=== PATIENT | female | born 2000 | race Caucasian/White ===

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

== ENCOUNTER → 2019-02-12 14:58 | Outpatient (CLI) | payer BC, SELFPAY ==
[2016-07-13 00:38] VITALS: BMI 29.0
[2019-02-12 16:42] LABS: Progesterone Level 5.56 ng/mL (See Comment)
== END ==
PROVIDERS: Visit Provider Obstetrics & Gynecology
DX: E28.2 Polycystic ovarian syndrome (principal)
CPT/HCPCS: 36415; 84144

== ENCOUNTER → 2019-03-14 15:58 | Outpatient (CLI) | payer BC, SELFPAY ==
[2016-07-13 00:38] VITALS: BMI 29.0
[2019-03-14 17:45] LABS: Progesterone Level 13.24 ng/mL (See Comment)
== END ==
PROVIDERS: Referring Provider Obstetrics & Gynecology; Visit Provider Obstetrics & Gynecology
DX: E28.8 Other ovarian dysfunction (principal)
CPT/HCPCS: 36415; 84144

== ENCOUNTER → 2019-03-21 11:50 | Outpatient (CLI) | payer BC, SELFPAY ==
[2016-07-13 00:38] VITALS: BMI 29.0
[2019-03-21 12:43] LABS: Internal QC Validated? YES +Cl - CLEAR BKGD
[2019-03-21 13:06] LABS: Pregnancy, Serum, hCG Quali. POSITIVE Negative
[2019-03-21 13:17] LABS: hCG Titer Quant., Serum 6 mIU/mL (1-3)
== END ==
PROVIDERS: Visit Provider Obstetrics & Gynecology
DX: N92.1 Excessive and frequent menstruation with irregular cycle (principal)
CPT/HCPCS: 36415; 84702; 84703

== ENCOUNTER → 2019-03-23 11:05 | Outpatient (CLI) | payer BC, SELFPAY ==
[2016-07-13 00:38] VITALS: BMI 29.0
[2019-03-23 11:59] LABS: hCG Titer Quant., Serum 6 mIU/mL (1-3)
== END ==
PROVIDERS: Visit Provider Obstetrics & Gynecology
DX: Z32.01 Encounter for pregnancy test, result positive (principal)
CPT/HCPCS: 36415; 84702

== ENCOUNTER → 2019-03-26 11:37 | Outpatient (CLI) | payer BC, SELFPAY ==
[2016-07-13 00:38] VITALS: BMI 29.0
[2019-03-26 16:35] LABS: Progesterone Level 0.71 ng/mL (See Comment)
[2019-03-27 15:01] LABS: hCG Titer Quant., Serum 10 mIU/mL (1-3)
[2019-04-02 13:20] LABS: HCG BETA-SUBUNIT QUANT. 11 mIU/mL (.)
== END ==
PROVIDERS: Visit Provider Obstetrics & Gynecology
DX: N92.1 Excessive and frequent menstruation with irregular cycle (principal); O20.0 Threatened abortion; Z3A.00 Weeks of gestation of pregnancy not specified
CPT/HCPCS: 36415; 84144; 84702

== ENCOUNTER → 2019-04-16 14:37 | Outpatient (CLI) | payer BC, SELFPAY ==
[2019-04-16 16:18] LABS: Progesterone Level 19.76 ng/mL (See Comment)
== END ==
PROVIDERS: Visit Provider Obstetrics & Gynecology
DX: N97.0 Female infertility associated with anovulation (principal)
CPT/HCPCS: 36415; 84144

== ENCOUNTER → 2019-05-29 13:19 | Outpatient (CLI) | payer BC, SELFPAY ==
[2019-05-29 15:11] LABS: hCG Titer Quant., Serum < 1 mIU/mL (1-3)
== END ==
PROVIDERS: Visit Provider Obstetrics & Gynecology
DX: N91.2 Amenorrhea, unspecified (principal)
CPT/HCPCS: 36415; 84702

== ENCOUNTER → 2019-06-20 09:46 | Outpatient (CLI) | payer BC, SELFPAY ==
[2016-07-13 00:38] VITALS: BMI 29.0
[2019-06-20 13:50] LABS: Progesterone Level 18.66 ng/mL (See Comment)
== END ==
PROVIDERS: Visit Provider Obstetrics & Gynecology
DX: N97.0 Female infertility associated with anovulation (principal)
CPT/HCPCS: 36415; 84144

== ENCOUNTER → 2019-06-26 13:48 | Outpatient (CLI) | payer BC, SELFPAY ==
[2016-07-13 00:38] VITALS: BMI 29.0
[2019-06-26 16:24] LABS: hCG Titer Quant., Serum 154 mIU/mL (1-3)
[2019-06-26 16:29] LABS: Progesterone Level 17.35 ng/mL (See Comment)
== END ==
PROVIDERS: Referring Provider Obstetrics & Gynecology; Visit Provider Obstetrics & Gynecology
DX: N91.2 Amenorrhea, unspecified (principal)
CPT/HCPCS: 36415; 84144; 84702

== ENCOUNTER → 2019-06-28 11:03 | Outpatient (CLI) | payer BC, SELFPAY ==
[2016-07-13 00:38] VITALS: BMI 29.0
[2019-06-28 12:33] LABS: hCG Titer Quant., Serum 360 mIU/mL (1-3)
== END ==
PROVIDERS: Visit Provider Obstetrics & Gynecology
DX: O20.0 Threatened abortion (principal)
CPT/HCPCS: 36415; 84702

== ENCOUNTER → 2019-06-30 10:15 | Outpatient (CLI) | payer BC, SELFPAY ==
[2016-07-13 00:38] VITALS: BMI 29.0
[2019-06-30 11:32] LABS: hCG Titer Quant., Serum 604 mIU/mL (1-3)
== END ==
PROVIDERS: Referring Provider Obstetrics & Gynecology; Visit Provider Obstetrics & Gynecology
DX: O20.0 Threatened abortion (principal); Z3A.00 Weeks of gestation of pregnancy not specified
CPT/HCPCS: 36415; 84702

== ENCOUNTER → 2019-07-02 14:09 | Outpatient (CLI) | payer BC, SELFPAY ==
[2019-07-02 15:55] LABS: hCG Titer Quant., Serum 862 mIU/mL (1-3)
== END ==
PROVIDERS: Visit Provider Obstetrics & Gynecology
DX: O20.0 Threatened abortion (principal)
CPT/HCPCS: 36415; 84702

== ENCOUNTER → 2019-07-04 13:24 | Outpatient (CLI) | payer BC, SELFPAY ==
[2019-07-04 17:01] LABS: hCG Titer Quant., Serum 1134 mIU/mL (1-3)
== END ==
PROVIDERS: Visit Provider Obstetrics & Gynecology
DX: O20.0 Threatened abortion (principal)
CPT/HCPCS: 36415; 84702

== ENCOUNTER 2019-08-23 05:30 | Day surgery (SDC) | payer BC, SELFPAY ==
--- NOTE | 2019-08-22 08:26 | HP.PCM_ITS ---
- Problem List (1) Incomplete spontaneous Status: Acute History and Physical Date of Admission: 08/23/19 Surgical History and Physical Date: 08/22/2019 Name: ENOC HENDRIX Age: 19 Date of : 2000 Enoc Hendrix, a 19 year old female 1 0 1 0 1, presents for Suction dilation and curettage on August 23, 2019 at 11:00. -- Undergoing D&C for incomplete Ab following cytotec. Reports 1 episode of heavy bleeding and cramping following initial cytotec and again almost 1 week later had an increase in bleeding x 1 days, now only spotting intermitting. Occasional mild cramping. Denies abdominal pain, fever, chills. shm MEDICATIONS HISTORY: Current medications prescribed by our practice are: 1. metformin 500 mg tablet, 1 daily for 1 week then 2 daily the next week then 3 daily the next week then 4 daily the next week 2. misoprostol 200 mcg tablet, 4 tabs vaginally q24h prn 3. Vitamin D3 5,000 unit tablet, 1 tab PO daily ALLERGIES: Penicillins, Hives and/or rash Infections - Chicken pox and vaccine and mild active case Illnesses - none Accidents - no injuries of consequence Hospitalizations - Childbirth Review of Systems: GENERAL - Denies fever, or chills SKIN - Denies skin changes EYES - Denies visual changes EARS - Denies difficulty hearing NOSE - Denies nasal congestion or bleeding MOUTH - Denies sore throat or difficulty swallowing NECK - Denies pain or swelling RESPIRATORY - Denies shortness of breath or wheezing CARDIOVASCULAR - Denies palpitations or chest pain GASTROINTESTINAL - Denies nausea, vomiting, diarrhea, constipation GENITOURINARY - spotting MUSCULOSKELETAL - Denies joint or muscle pain NEUROLOGICAL - Denies localized numbness or weakness PSYCHIATRIC - Denies depression or anxiety ENDOCRINE - Denies heat or cold intolerance, weight loss or gain HEMATO-IMMUNOLOGIC - Denies excesive bleeding with cuts SOCIAL HISTORY: Alcohol Use - denies drinking Smoking - Never Diet - no special diet Lifestyle - Exercise - active Seat Belt Use - always Illicit Drug Use - denies use of street drugs Sexual Activity - ACTIVE ONE PARTNER Residence - lives with and daughter Place of - [place], [place] Spouse-Sig Other Name - Scotty Hendrix Spouse-Sig Other Occupation - [employer] Spouse-Sig Other Phone No - [phone] Children Name(s) - Tammy Control - FAMILY HISTORY: MENSTRUAL HISTORY: LMP Known?- DefiniteAmount/Duration - 4-5 DAYS, Regularity - Regular, Frequency - monthly days, LMP - 05/30/19, Age Onset Menarche - 10 PAST PREGNANCIES: Total Pregnancies - 3; Full Term Pregnancies - 1; Premature - 0; Abortions, Induced - 0; Abortions, Spontaneous - 1; Ectopics - 0; Multiple Births - 0; Living Children - 1 SURGICAL HISTORY: 1. none ; - PHYSICAL EXAM BP- 100/76 Sitting, Right arm, regular cuff Weight- 219.82098 lbs Height- 66.25 inch BMI:35.15 CONSTITUTIONAL - NAD, well nourished, and well developed HEENT - normocephalic, atraumatic, sclerae anicteric NEUROLOGICAL - normal gait, normal balance, normal motor PSYCHIATRIC - A and O to time, place, person, mood and affect External Genitial Vagina - non-tender without lesions Urethra/Urethral Meatus - non-tender Bladder - non-tender Vagina - vaginal armenta are pink and moist without loss of rugae and no evidence of atropy Cervix - without cervical motion tenderness and has normal size and features without evident lesions Uterus - multiparous size 6 cm & wt 75-125 g Adnexa - clear without massess or tenderness ULTRASOUND 08/16/19 UTERUS: 8.3 x 5.5 x 4.5 cm. ENDOMETRIAL ECHO: 1 cm and contains heterogenous material with blood flow. RIGHT OVARY: 4.2 x 1.9 x 2 cm. There is a 1.6 x 1.2 x 1 cm paratubal vs paraovarian cyst and appears polycystic. LEFT OVARY: 3.9 x 2 x 2 cm and appears polycystic. ASSESSMENT/PLAN: 1. Missed s/p incomplete Ab following cytotec for missed Ab as confirmed with ultrasound Persistent bleeding Advised suction dilation and curettage, reviewed r/b/i. Discussed misoprostol as alternative with review of risk for failure Sign consents on day of procedure NPO @ MN prior to procedure
[2019-08-23] VITALS (7 sets, daily range): BP systolic 105–121; BP diastolic 64–83; PULSE 71–93; RESP 16–18; TEMP 36.4–36.7; O2SAT 93–99; BMI 34.6
[2019-08-23] MEDS: Lactated Ringers 1,000 ML 100 ML IV (06:17)
[2019-08-23 06:46] LABS: Hematocrit 43.2 % (37-47); Mean Corp Hgb Conc 34.7 g/dL (32-36); Mean Corpuscular Hgb 29.5 pg (27.0-32.0); Mean Platelet Vol. 9.5 fl (6.2-12.0); Platelet Count 250 K/mm3 (150-450); RBC Distribution Width CV 12.4 % (11.6-14.6); RBC Distribution Width SD 37.9 fl (35.1-43.9); Red Blood Count 5.08 M/mm3 (4.2-5.4); White Blood Count 7.6 K/mm3 (4.4-11.0)
[2019-08-23 06:54] LABS: Prothrombin Time (Protime)PT. 13.1 SECONDS (11.7-14.9)
--- NOTE | 2019-08-23 07:15 | POC_PTH ---
PATIENT: ENOC HENDRIX LOC: [facility] – [place] U#:[id number] AGE/SX: 19/F ROOM: RE08/23/[address]: Dr. Cynthia Marion MD : 2000 BED: DIS: 08/23/2019 SPEC #: [id number] RECD: 08/23/19 09:32 STATUS: HALEIGH MANJU #: [id number] JASIEL: 08/23/19 07:[address]: Cynthia Mondragon DEPT: SURGICAL PATHOLOGY RECD BY: Shankar Choudhary ENTERED: 08/23/19 10:34 SP TYPE: PROD CONC OTHR DR: No Primary Care Phys Tissues: Product of conception, NOS Procedures: Surgery Specimen Level IV HEADER OPERATION: Dilation and curettage, suction PRE-OP DIAGNOSIS: Incomplete spontaneous TISSUE SUBMITTED: Products of conception MICROSCOPIC DIAGNOSIS Products of conception: Decidua and immature chorionic villi (products of conception). Proliferative endometrium. SJ:shane 08/24/19 COMMENT Case has been reviewed in consultation with Dr. Gates who concurs with the above diagnosis. IDC:AM MICROSCOPIC DESCRIPTION Slides are reviewed. GROSS DESCRIPTION Received in fixative is one container labeled with the patient's name and designated products of conception. The specimen consists of multiple fragments of pink hemorrhagic soft tissue that in aggregate measure 5 x 3 x 0.3 cm. tissue is not identified. The entire specimen is submitted in two cassettes. / SJ:shane 08/23/19 TC:5 CPT: 14682
[2019-08-23] MEDS: Lubricating Jelly 60 GM Tube 30 GM TOPICAL (07:25)
--- NOTE | 2019-08-23 07:45 | PCM.OPRPT ---
Problem List (1) Incomplete spontaneous Status: Acute Report of Operation Date of Procedure: 08/23/19 Pre-Operative Diagnosis: Incomplete spontaneous Post-Operative Diagnosis: Incomplete spontaneous Surgery/Procedure Performed:: Suction dilation and curettage tube cleaning operator: None Type of Anesthesia:: Local MAC Anesthesiologist: David Rodriguez Specimen's removed: products of conception Estimated Blood Loss (mL): 30 Fluids Replaced: 800 ml Description of Procedure: Indications: 19-year-old 3 para 1-0-1-1 presents for scheduled suction dilation and curettage for incomplete spontaneous . She had a 6week that was nonviable. She received misoprostol therapy however ultrasound showed retained products of conception. She was advised to proceed with the above procedure. Procedural risks, benefits, indications and alternatives were reviewed at length. Procedure: The patient was brought to the operating room and signed and was performed. She is placed in the dorsal supine position and induced under MAC. She is then repositioned into dorsolithotomy. Ultrasound was performed demonstrating evidence of customer relations assistant retained products of conception. The perineum was prepped and draped in sterile fashion. A bivalve speculum was placed into the vagina and the cervix grasped the anterior cervical lip using a single-tooth tenaculum. A paracervical block was placed for a total of 20 cc of 1% lidocaine. The cervix was subsequently dilated and suction curettage performed using a 7 mm curved curette. This was followed by sharp curettage and again suction curettage was again performed. Ultrasound during the procedure noted thinning of the endometrial lining. The procedure was complete. The tenaculum was removed from the cervix. The tenaculum site was hemostatic and the speculum was removed from the vagina. The patient was placed into a dorsal supine position, awakened and transferred to the recovery room without complication. Sponge counts were correct x2. - Complications None - Admit VTE Documentation VTE Present on Admission: No VTE Mechan Device Prophylaxis: SCD's VTE Pharm Prophylaxis ordered?: No
--- NOTE | 2019-08-23 07:50 | DCINST_ITS ---
Discharge Diet: No Restrictions Discharge Activity: Return to Normal Activity May resume sexual activity in: - - 2-4 weeks Call your doctor if you observe: Fever of 101 or Higher, Inability to urinate, Inability to have a bowel movement, Using more than one pad per hour, Shortness of breath, Chest pain, Calf discomfort, Uncontrolled pain Allergies/Adverse Reactions: Allergies penicillin G Allergy (Verified 08/23/19 05:59) Rash Medications to take at Discharge Vits [Prenatabs FA ] 1 tablet PO DAILY 07/06/16 Cholecalciferol (VIT D3) [Vitamin D3] 1,000 unit PO DAILY 08/20/19 Metformin HCl [Metformin HCl ER] 1,000 mg PO QHS 08/20/19 Ibuprofen 600 mg PO TID PRN #30 tab 08/23/19 The following prescriptions were given: Ibuprofen 600 mg PO TID PRN #30 tab PRN Reason: pain Transmission Status: Pending to [facility] Primary Care Physician: Care Physician,No Primary [Primary Care Provider] - Test Results: Test results from this visit will be discussed in further detail at your follow- up appointment, if applicable. Please Follow Up With: Cynthia Wilks MD When: 2-4 weeks
== END 2019-08-23 09:11 | disposition home or self-care (01) ==
LOC: SDC 05:32 → AC 05:33
PROVIDERS: Referring Provider Obstetrics & Gynecology; Visit Provider Obstetrics & Gynecology
PROC: (CPT 59812; principal; 2019-08-23 07:00)
DX: O03.4 Incomplete spontaneous abortion without complication (principal)
CPT/HCPCS: 01965; 59812; 85027; 85610; 85730; 86850; 86900; 86901; 88305; J7120; J2405

== ENCOUNTER → 2019-09-12 16:27 | Outpatient (CLI) | payer BC, SELFPAY ==
[2019-08-23 06:00] VITALS: BMI 34.6
[2019-09-12 17:42] LABS: Hematocrit 46.1 % (37-47); Hemoglobin 15.6 g/dL (12.0-15.0); Mean Corp Hgb Conc 33.8 g/dL (32-36); Mean Corpuscular Hgb 29.3 pg (27.0-32.0); Mean Corpuscular Volume 86.7 fL (81-99); Mean Platelet Vol. 9.9 fl (6.2-12.0); Platelet Count 223 K/mm3 (150-450); RBC Distribution Width CV 12.6 % (11.6-14.6); RBC Distribution Width SD 39.1 fl (35.1-43.9); Red Blood Count 5.32 M/mm3 (4.2-5.4); White Blood Count 7.2 K/mm3 (4.4-11.0)
[2019-09-12 17:57] LABS: Progesterone Level 0.91 ng/mL (See Comment)
[2019-09-12 17:59] LABS: Prothrombin Time (Protime)PT. 13.2 SECONDS (11.7-14.9)
[2019-09-12 18:12] LABS: Partial Thromboplast Time 29.9 Seconds (24.1-36.2)
== END ==
LOC: WOBLAB 16:28
PROVIDERS: Visit Provider Obstetrics & Gynecology
DX: E28.2 Polycystic ovarian syndrome (principal); T14.8XXA Other injury of unspecified body region, initial encounter
CPT/HCPCS: 36415; 84144; 85027; 85610; 85730

== ENCOUNTER 2019-10-12 13:20 | Outpatient (RCR) | payer BC, SELFPAY ==
[2019-08-23 06:00] VITALS: BMI 34.6
[2019-10-12 14:10] LABS: Progesterone Level 10.75 ng/mL (See Comment)
== END 2019-11-06 23:59 ==
LOC: WOBLAB 13:20
PROVIDERS: Visit Provider Obstetrics & Gynecology
DX: E28.8 Other ovarian dysfunction (principal)
CPT/HCPCS: 36415; 84144

== ENCOUNTER → 2020-02-29 | Outpatient (CLI) | payer BC, SELFPAY ==
[2019-08-23 06:00] VITALS: BMI 34.6
[2020-02-29 11:45] LABS: Progesterone Level 27.22 ng/mL (See Comment)
[2020-02-29 11:59] LABS: hCG Titer Quant., Serum 106 mIU/mL (1-3)
== END | disposition home or self-care (01) ==
LOC: WOBLAB 09:49
PROVIDERS: Visit Provider Obstetrics & Gynecology
DX: N92.1 Excessive and frequent menstruation with irregular cycle (principal)
CPT/HCPCS: 36415; 84144; 84702

== ENCOUNTER → 2020-03-03 | Outpatient (CLI) | payer BC, SELFPAY ==
[2019-08-23 06:00] VITALS: BMI 34.6
[2020-03-03 11:54] LABS: hCG Titer Quant., Serum 376 mIU/mL (1-3)
== END | disposition home or self-care (01) ==
LOC: WOBLAB 09:57
PROVIDERS: Visit Provider Obstetrics & Gynecology
DX: N92.1 Excessive and frequent menstruation with irregular cycle (principal)
CPT/HCPCS: 36415; 84702

== ENCOUNTER → 2020-03-05 | Outpatient (CLI) | payer BC, SELFPAY ==
[2019-08-23 06:00] VITALS: BMI 34.6
[2020-03-05 12:07] LABS: hCG Titer Quant., Serum 786 mIU/mL (1-3)
== END | disposition home or self-care (01) ==
LOC: WOBLAB 09:47
PROVIDERS: Visit Provider Obstetrics & Gynecology
DX: O09.299 Supervision of pregnancy with other poor reproductive or obstetric history, unspecified trimester (principal); Z3A.00 Weeks of gestation of pregnancy not specified
CPT/HCPCS: 36415; 84702

== ENCOUNTER → 2020-03-14 | Outpatient (CLI) | payer BC, SELFPAY ==
[2019-08-23 06:00] VITALS: BMI 34.6
[2020-03-14 16:16] LABS: Progesterone Level 44.48 ng/mL (See Comment)
[2020-03-14 18:25] LABS: Chlamydia Trachomatis by PCR Negative (Negative); Neisserai gonorrhoeae by PCR Negative (Negative); Probe Check PASS; Sample Adequacy Control PASS; Specimen Processing Control PASS
== END | disposition home or self-care (01) ==
LOC: LABSPEC 14:24
PROVIDERS: Visit Provider Obstetrics & Gynecology
DX: Z34.81 Encounter for supervision of other normal pregnancy, first trimester (principal); Z11.3 Encounter for screening for infections with a predominantly sexual mode of transmission
CPT/HCPCS: 84144; 87491; 87591

== ENCOUNTER → 2020-04-09 12:10 | Outpatient (CLI) | payer BC, SELFPAY ==
[2019-08-23 06:00] VITALS: BMI 34.6
[2020-04-09 14:00] LABS: Absolute Lymphocyte Count 1.82 X10^3/uL (0.83-4.51); Absolute Neutrophil Count 8.3 X10^3/uL (2.0-7.7); Basophil# 0.04 X10^3/uL; Basophil% 0.4 % (0-1); Color, Urine Yellow (Yellow); Eosinophil# 0.08 X10^3/uL; Eosinophils% 0.7 % (0-5); Glucose, Dipstick Normal (Normal); Hematocrit 41.9 % (37-47); Hemoglobin 14.4 g/dL (12.0-15.0); Ketone-Dipstick Negative (Negative); Leukocyte Esterase-Dipstick 25 /ul (Negative); Lymphocyte # 1.82 X10^3/ul (4.0); Lymphocyte % 16.7 % (19-41); Mean Corp Hgb Conc 34.4 g/dL (32-36); Mean Corpuscular Hgb 29.7 pg (27.0-32.0); Mean Corpuscular Volume 86.4 fL (81-99); Mean Platelet Vol. 10.3 fl (6.2-12.0); Monocyte# 0.58 X10^3/uL; Monocyte% 5.3 % (0-10); NRBC Flagged by Analyzer 0 % (0-5); Neutrophil # 8.32 X10^3/uL (2.7-7.7); Neutrophil % 76.5 % (47-70); Nitrite-Dipstick Negative (Negative); Occult Blood-Urine Negative /ul (Negative); Platelet Count 218 K/mm3 (150-450); Protein-Dipstick Negative (Negative); RBC Distribution Width CV 12.8 % (11.6-14.6); RBC Distribution Width SD 39.8 fl (35.1-43.9); Red Blood Count 4.85 M/mm3 (4.2-5.4); Specific Gravity, Urine 1.025 (1.002-1.030); Urine Bilirubin Dipstick Negative (Negative); Urine Clarity Clear (Clear); Urine Urobilinogen Normal (Normal); White Blood Count 10.9 K/mm3 (4.4-11.0)
[2020-04-09 14:08] LABS: Amphetamine Urine VISTA NEGATIVE (<1000 ng/mL); Barbiturate Urine VISTA NEGATIVE (< 200 ng/mL); Benzodiazepine Urine VISTA NEGATIVE (< 200 ng/mL); Cocaine Urine VISTA NEGATIVE (< 300 ng/mL); Ecstacy Urine VISTA NEGATIVE (< 500 ng/mL); Methadone Urine VISTA NEGATIVE (< 300 ng/mL); PCP Urine VISTA NEGATIVE (< 25 ng/mL); THC Urine VISTA NEGATIVE (< 50 ng/mL); Vista UDS pH Range 6
[2020-04-09 14:18] LABS: Glucose Challenge Gest 1H 50g 77 mg/dL (70-140); Thyroid Stim Hormone (TSH) 4.32 uIU/mL (0.358-3.74)
[2020-04-09 14:54] LABS: HIV - WCH Non-Reactive (Nonreactive); Hepatitis B Surface Antigen Non-Reactive (Nonreactive); Hepatitis C Antibody Non-Reactive (Nonreactive); Rubella IgG 116.8 IU/mL; Vitamin D,25 Hydroxy 37.1 ng/mL
[2020-04-10 06:29] LABS: Prenatal RPR NONREACTIVE (NONREACTIVE)
== END ==
PROVIDERS: Visit Provider Obstetrics & Gynecology
DX: O99.810 Abnormal glucose complicating pregnancy (principal); O99.280 Endocrine, nutritional and metabolic diseases complicating pregnancy, unspecified trimester; E28.2 Polycystic ovarian syndrome
CPT/HCPCS: 36415; 80307; 81002; 82306; 82950; 84439; 84443; 84481; 85025; 86703; 86762; 86803; 87340

== ENCOUNTER → 2020-08-13 | Outpatient (CLI) | payer MEDICAID, SELFPAY ==
[2019-08-23 06:00] VITALS: BMI 34.6
[2020-08-13 12:22] LABS: Glucose Challenge Gest 1H 50g 99 mg/dL (70-140)
[2020-08-13 12:47] LABS: Hematocrit 34.7 % (37-47); Hemoglobin 11.6 g/dL (12.0-15.0); Mean Corp Hgb Conc 33.4 g/dL (32-36); Mean Corpuscular Hgb 30.1 pg (27.0-32.0); Mean Corpuscular Volume 90.1 fL (81-99); Mean Platelet Vol. 9.1 fl (6.2-12.0); Platelet Count 207 K/mm3 (150-450); RBC Distribution Width CV 14.1 % (11.6-14.6); RBC Distribution Width SD 46.3 fl (35.1-43.9); Red Blood Count 3.85 M/mm3 (4.2-5.4); White Blood Count 9.3 K/mm3 (4.4-11.0)
[2020-08-14 11:40] LABS: Ferritin 37 ng/mL (8-252)
== END | disposition home or self-care (01) ==
LOC: WOBLAB 11:15
PROVIDERS: Visit Provider Obstetrics & Gynecology
DX: O99.013 Anemia complicating pregnancy, third trimester (principal); D64.9 Anemia, unspecified; Z3A.00 Weeks of gestation of pregnancy not specified
CPT/HCPCS: 36415; 82728; 82950; 85027

== ENCOUNTER → 2020-10-09 | Outpatient (CLI) | payer MEDICAID, SELFPAY ==
[2019-08-23 06:00] VITALS: BMI 34.6
== END | disposition home or self-care (01) ==
LOC: LABSPEC 12:46
PROVIDERS: Visit Provider Student in an Organized Health Care Education/Training Program
DX: Z36.85 Encounter for antenatal screening for Streptococcus B (principal)
CPT/HCPCS: 87081

== ENCOUNTER → 2020-10-21 15:18 | Outpatient (CLI) | payer MEDICAID, SELFPAY ==
[2019-08-23 06:00] VITALS: BMI 34.6
[2020-10-21 16:06] LABS: Protein, Urine (Random) 26.2 mg/dL (<11.9); Protein:Creat Ratio 316 mg/g CRE (0-200)
[2020-10-21 17:09] LABS: Hematocrit 34.3 % (37-47); Hemoglobin 11.6 g/dL (12.0-15.0); Mean Corp Hgb Conc 33.8 g/dL (32-36); Mean Corpuscular Hgb 29.8 pg (27.0-32.0); Mean Corpuscular Volume 88.2 fL (81-99); Mean Platelet Vol. 9.2 fl (6.2-12.0); Platelet Count 198 K/mm3 (150-450); RBC Distribution Width CV 14.1 % (11.6-14.6); RBC Distribution Width SD 44.7 fl (35.1-43.9); Red Blood Count 3.89 M/mm3 (4.2-5.4)
[2020-10-21 17:21] LABS: ALB/GLOB Ratio 0.6 RATIO (0.9-2.4); AST(SGOT) 17 U/L (15-37); Alanine Aminotransfer ALT/SGPT 15 U/L (13-56); Albumin, Serum 2.7 g/dL (3.2-5.0); Alkaline Phosphatase 189 U/L (45-117); Anion Gap 9 (5-15); BUN 3 mg/dL (7-18); Calcium,Total 8.5 mg/dL (8.5-10.1); Chloride 111 mmol/L (98-107); Creatinine, Serum 0.75 mg/dL (0.55-1.02); EST Glomerular Filtration Rate 103 mL/min (>60); Est Glom Filt Rate - Afr Amer 125 mL/min (>60); Globulin 4.2 g/dL (2.2-4.2); Glucose 90 mg/dL (74-106); LDH 229 U/L (84-246); Protein, Total 6.9 g/dL (6.4-8.2); Sodium Level 142 mmol/L (136-145)
== END ==
PROVIDERS: Visit Provider Student in an Organized Health Care Education/Training Program
DX: R79.89 Other specified abnormal findings of blood chemistry (principal)
CPT/HCPCS: 36415; 80053; 82570; 83615; 84156; 85027; 87086; 87088

== ENCOUNTER → 2020-10-22 13:58 | Outpatient (CLI) | payer MEDICAID, SELFPAY ==
[2019-08-23 06:00] VITALS: BMI 34.6
== END ==
PROVIDERS: Referring Provider Student in an Organized Health Care Education/Training Program; Visit Provider Student in an Organized Health Care Education/Training Program
DX: Z03.818 Encounter for observation for suspected exposure to other biological agents ruled out (principal)
CPT/HCPCS: 87635; C9803; U0002

== ENCOUNTER 2020-10-28 06:50 | Inpatient (IN) | payer MEDICAID, SELFPAY ==
[2019-08-23 06:00] VITALS: BMI 34.6
[2020-10-28] VITALS (52 sets, daily range): BP systolic 100–142; BP diastolic 56–85; PULSE 68–118; RESP 16–18; TEMP 36.2–37.2; O2SAT 85–100; BMI 37.5
--- NOTE | 2020-10-28 07:07 | HP.PCM_ITS ---
History and Physical Date of Admission: 10/28/20 HPI: 20 yo at 39w0d, with MADDY 11/04/20 by LMP, presents for term induction of labor Denies VB, LOF, regular contractions. +FM. This is complicated by: subclinical hypothyroidism on synthroid Obstetrical History : 37w G2: 7w SAB, D&C G3: current Past Medical History subclinical hypothyroidism Medications PNV, synthroid Past Surgical History D&C Social History Tobacco use: denies Alcohol use: denies Illicit drug use: denies Labs Blood type: O pos Rubella: immune Hep B/C: neg/neg HIV: neg RPR: immune GBS: neg 3/4 Allergies NKDA Review of Systems General: alert and oriented HEENT: _denies change of vision Heart/lungs: _denies CP, SOB GI: _denies nausea, vomiting, dysuria, diarrhea MSK: _denies calf pain, tenderness Physical Exam Vital Signs Pulse BP Pulse Ox 10/28/20 07:22 87 120/85 H 10/28/20 07:21 90 99 General: a&o x3, NAD HEENT: normocephalic, atraumatic Cardio: no JVD Resp: no increased work in breathing Abdomen: soft, gravid, nontender Extremities: _minimal-moderate edema CE: 3 cm FHT: 140/mod bhavesh/+accel/no decel [place]: quiet Labs Pending Assessment & Plan 20 yo at 39w0d, with MADDY 11/04/20 by LMP, presents for term induction of labor. This is complicated by: subclinical hypothyroidism on synthroid Admit to L&D - Routine labor orders - AROM induction - GBS neg - CEFM - Anesthesia to see
[2020-10-28] MEDS: Lactated Ringers 1,000 ML 50 ML IV (07:45)
[2020-10-28] MEDS: Lactated Ringers 500 ML 999 ML IV ×3 (08:15→18:03)
[2020-10-28 08:19] LABS: Absolute Neutrophil Count 7.7 X10^3/uL (2.0-7.7); Basophil# 0.04 X10^3/uL; Basophil% 0.4 % (0-1); Eosinophil# 0.08 X10^3/uL; Eosinophils% 0.8 % (0-5); Hematocrit 34.1 % (37-47); Hemoglobin 11.7 g/dL (12.0-15.0); Lymphocyte % 17.5 % (19-41); Mean Corp Hgb Conc 34.3 g/dL (32-36); Mean Corpuscular Hgb 30.3 pg (27.0-32.0); Mean Corpuscular Volume 88.3 fL (81-99); Mean Platelet Vol. 9.1 fl (6.2-12.0); Monocyte# 0.57 X10^3/uL; Monocyte% 5.5 % (0-10); NRBC Flagged by Analyzer 0 % (0-5); Neutrophil # 7.72 X10^3/uL (2.7-7.7); Neutrophil % 74.9 % (47-70); Platelet Count 196 K/mm3 (150-450); RBC Distribution Width CV 14.6 % (11.6-14.6); RBC Distribution Width SD 45.4 fl (35.1-43.9); Red Blood Count 3.86 M/mm3 (4.2-5.4); White Blood Count 10.3 K/mm3 (4.4-11.0)
[2020-10-28] MEDS: Oxytocin 30 units/NS 500 ml 30 UNITS/500 ML IV.SOLN IV (08:30)
[2020-10-28] MEDS: fentaNYL-bupivacaine (epidural) 100 ML BAG EPIDURAL (10:08)
[2020-10-28] MEDS: Oxytocin 30 units/NS 500 ml 30 UNITS/500 ML IV.SOLN 334 UNITS IV (14:39)
--- NOTE | 2020-10-28 14:50 | PCM.OPRPT ---
Vaginal Delivery Maternal Presentation: Elective Induction Amniotic Membrane Rupture Type: Artificial Amniotic Fluid Description: Clear Final MADDY: 11/04/20 Final MADDY Source: LMP Gestational age: 39 Weeks and 0 Days Date of Procedure: 10/28/20 Pre-Operative Diagnosis: Elective term induction Post-Operative Diagnosis: Elective term induction Surgery/ Procedure Performed: Spontaneous Vaginal Delivery Type of Anesthesia: Epidural Description of Procedure: Spontaneous vaginal delivery of viable infant female. No nuchal cord. Baby to mom. Cord clamped and cut. First degree perineal laceration, repaired in usual fashion, hemostatic. Bilateral labial abrasions hemostatic without intervention. EBL 450cc. Cord Vessel Description: 3 Vessels A gender: Female (1 minute): 9 (5 minute): 9
--- NOTE | 2020-10-28 14:52 | DCINST_ITS ---
Discharge Activity: Return to Normal Activity, May Shower May resume sexual activity in: 4-6 weeks Weight Bearing Status: Weight bearing as tolerated Call your doctor if you observe: Inability to urinate, Inability to have a bowel movement, Using more than one pad per hour, Swelling in the ankles, Calf discomfort, Uncontrolled pain Additional Instructions: If you experience any of the following, contact your healthcare provider. * Bleeding that soaks a pad every hour for 2 hours * Fever 100.4 or higher * Unrelieved incision or abdominal pain * Swelling, redness, discharge or bleeding from your incision or episiotomy site * Your incision begins to separate * Problems urinating (including inability to urinate or burning while urinating). * Visual changes * Severe headache * Flu-like symptoms * Pain or redness in one of both of your breasts * Pain, warmth, tenderness or swelling in your legs, especially the calf area * Frequent nausea and vomiting * Symptoms of depression or anxiety If you experience any of the following, call 911 or go to the nearest Emergency Room. * Chest pain * Problems breathing * Seizure activity * Partial or complete paralysis of a body part, slurred speech, weakness or drooping of the face, or a sudden inability to walk or hold your balance Allergies/Adverse Reactions: Allergies penicillin G Allergy (Verified 08/23/19 05:59) Rash Medications to take at Discharge Vits [Prenatabs FA ] 1 tablet PO DAILY 07/06/16 Cholecalciferol (VIT D3) [Vitamin D3] 1,000 unit PO DAILY 08/20/19 Metformin HCl [Metformin HCl ER] 1,000 mg PO QHS 08/20/19 Ibuprofen 600 mg PO TID PRN #30 tab 08/23/19 Please Follow Up With: Felisha Lomas DO When: 2 week BP check, 6 week Primary Care Physician: Care Physician,No Primary [Primary Care Provider] - Test Results: Test results from this visit will be discussed in further detail at your follow- up appointment, if applicable.
[2020-10-28] MEDS: Acetaminophen 500 MG Tablet 1000 MG PO (15:33)
[2020-10-28] MEDS: 0.9% Saline Lock 10 ML Syringe IV ×2 (17:10→18:34)
--- NOTE | 2020-10-28 18:04 | NURSING ---
late entry [id number]- pt ambulated up to br with stand by assist and then passed out on toilet, had brief seizure like activity and pt then came too. Nurses assisted pt onto wheel chair and then back into bed. fundus firm u-1 midline lochia wnl. vss. 120/69 hr 89 pox 94% 180-iv fluid bolus started. 1814-dr rey on floor made aware of above ok to run 500cc bolus
[2020-10-28] MEDS: Ibuprofen 600 MG Tablet PO (20:59)
[2020-10-29 04:23] VITALS: BP 124/62; PULSE 90; RESP 18; TEMP 36.1; O2SAT 95
--- NOTE | 2020-10-29 07:32 | PCM.PN.OB ---
Subjective: PPD1 . Lochia minimal. Feeling well. - Physical Exam Vitals/I&O's: Vital Signs Temp Pulse Resp BP Pulse Ox 97 F L 90 18 124/62 H 95 10/29/20 04:23 10/29/20 04:23 10/29/20 04:23 10/29/20 04:23 10/29/20 04:23 Oxygen Delivery Method Room Air Weight: 108.9 kg Body Mass Index (BMI) 37.5 Intake and Output for Last 24 Hours 10/27/20 10/28/20 10/29/20 23:59 23:59 23:59 Intake Total 2631.97 / 2631.97 Output Total 1250 / 1250 Balance 1381.97 / 1381.97 General: Alert, Oriented x3, No apparent distress HEENT: Atraumatic, Normocephalic Neck: Supple Lungs: Normal air movement Cardiovascular: Regular rate, Regular Rhythm Abdomen: Soft - uterus 2 cm below umbilicus Extremities: No edema Neurological: Cranial nerves II-XII grossly intact Psych/Mental Status: Normal Affect, Appropriate Microbiology Past 72 Hours 10/28/20 09:25 Mucosa - Nose SARS-CoV-2 Antigen (Rapid) - Final Laboratory Results 10/28/20 07:45: WBC 10.3, RBC 3.86 L, Hgb 11.7 L, Hct 34.1 L, MCV 88.3, MCH 30.3, MCHC 34.3, RDW Std Deviation 45.4 H, RDW Coeff of Stu 14.6, Plt Count 196, MPV 9.1, Immature Gran % (Auto) 0.900, Neut % (Auto) 74.9 H, Lymph % (Auto) 17.5 L, [place] % (Auto) 5.5, Eos % (Auto) 0.8, Baso % (Auto) 0.4, Absolute Neuts (auto) 7.7, Absolute Lymphs (auto) 1.80, Nucleated RBC % 0 10/28/20 07:45: Blood Type O POSITIVE, Antibody Screen NEGATIVE Current Medications Acetaminophen (Acetaminophen 500 Mg Tablet) 1,000 mg PO Q8H PRN PRN PRN Reason: Pain Score 1-3 Last Admin: 10/28/20 15:33 Dose: 1,000 mg Documented by: Bisacodyl (Bisacodyl 10 Mg Suppository) 10 mg RC UD PRN PRN Reason: If no BM Dibucaine (Dibucaine 30 Gm Tube) 1 applic TOPICAL TID PRN PRN; Protocol PRN Reason: Discomfort Hydrocortisone (Hydrocortisone 2.5% Crm) 1 applic TOPICAL TID PRN PRN; Protocol PRN Reason: Discomfort Ibuprofen (Ibuprofen 600 Mg Tablet) 600 mg PO Q6H PRN PRN PRN Reason: Pain Score 1-3 Last Admin: 10/28/20 20:59 Dose: 600 mg Documented by: Influenza Virus Vaccine Quadrival (Influenza Vaccine (6mos+)/Pf 0.5 Ml Syringe) 0.5 ml IM .ONCE ONE Stop: 10/29/20 10:01 Ondansetron HCl (Ondansetron 4 Mg/2 Ml Vial) 4 mg IV Q4H PRN PRN PRN Reason: Nausea Senna/Docusate Sodium (Senna/Docusate Sodium 1 Tablet) 1 - 2 tablet PO DAILY PRN PRN PRN Reason: Constipation Simethicone (Simethicone 80 Mg Tablet) 80 mg PO PCHS PRN PRN Reason: Indigestion/Stomach pain Sodium Chloride (0.9% Saline Lock 10 Ml Syringe) 5 - 15 ml IV UD PRN PRN Reason: SALINE FLUSH Last Admin: 10/28/20 18:34 Dose: 10 ml Documented by: Medical Necessity - Tobacco Use Smoking Status: Never smoker Assessment/Plan All Active Problems Incomplete spontaneous (Acute) Normal spontaneous vaginal delivery (Acute) 38 weeks gestation of (Acute) PPD#1 s/p . Uncomplicated . . Home today.
[2020-10-29 08:10] VITALS: BP 110/69; PULSE 75; RESP 16; TEMP 36.4
[2020-10-29] MEDS: Acetaminophen 500 MG Tablet 1000 MG PO (08:19)
[2020-10-29 11:33] VITALS: BP 101/47; PULSE 76; RESP 16; TEMP 36.2
[2020-10-29 16:04] VITALS: BP 130/83; PULSE 102; RESP 16; TEMP 36.3
== END 2020-10-29 16:30 | disposition home or self-care (01) | DRG 560 ==
PROVIDERS: Admitting Provider Student in an Organized Health Care Education/Training Program; Referring Provider Student in an Organized Health Care Education/Training Program; Visit Provider Student in an Organized Health Care Education/Training Program
DX: O99.284 Endocrine, nutritional and metabolic diseases complicating childbirth (principal); E03.9 Hypothyroidism, unspecified; O70.0 First degree perineal laceration during delivery; Z3A.39 39 weeks gestation of pregnancy; Z37.0 Single live birth
CPT/HCPCS: 59025; 59050; 85025; 86850; 86900; 86901; 87426; 99218; J7120; 90686; A4216; G0378

== ENCOUNTER → 2020-12-04 11:58 | Outpatient (CLI) | payer MEDICAID, SELFPAY ==
[2020-10-28 07:14] VITALS: BMI 37.5
[2020-12-04 12:56] LABS: Free T3 2.7 pg/mL (2.18-3.98); T4 Free Direct 1.01 ng/dL (0.76-1.46); Thyroid Stim Hormone (TSH) 1.18 uIU/mL (0.358-3.74)
[2020-12-09 10:40] LABS: HPV Reflexed? NOT INDICATED
== END ==
PROVIDERS: Visit Provider Student in an Organized Health Care Education/Training Program
DX: E03.9 Hypothyroidism, unspecified (principal); Z12.4 Encounter for screening for malignant neoplasm of cervix
CPT/HCPCS: 36415; 84439; 84443; 84481; 88175; G0145

== ENCOUNTER 2021-09-15 11:50 | Outpatient (CLI) | payer MEDICAID, SELFPAY ==
[2021-09-15 14:25] LABS: Estradiol 162.6 pg/mL; hCG Titer Quant., Serum 86 mIU/mL (1-3)
[2021-09-15 14:27] LABS: Progesterone Level 13.27 ng/mL (See Comment)
== END 2021-09-15 23:59 | disposition home or self-care (01) ==
LOC: WOBLAB 11:51
PROVIDERS: Visit Provider Obstetrics & Gynecology
DX: O03.4 Incomplete spontaneous abortion without complication (principal); O99.280 Endocrine, nutritional and metabolic diseases complicating pregnancy, unspecified trimester; O99.891 Other specified diseases and conditions complicating pregnancy; N92.5 Other specified irregular menstruation; E28.2 Polycystic ovarian syndrome
CPT/HCPCS: 36415; 82670; 84144; 84702

== ENCOUNTER 2021-09-17 11:47 | Outpatient (CLI) | payer MEDICAID, SELFPAY ==
[2021-09-17 13:59] LABS: hCG Titer Quant., Serum 233 mIU/mL (1-3)
== END 2021-09-17 23:59 | disposition home or self-care (01) ==
LOC: WOBLAB 11:48
PROVIDERS: Visit Provider Obstetrics & Gynecology
DX: O20.0 Threatened abortion (principal)
CPT/HCPCS: 36415; 84702

== ENCOUNTER 2021-09-24 12:03 | Outpatient (CLI) | payer MEDICAID, SELFPAY ==
[2021-09-24 14:08] LABS: Estradiol 165.1 pg/mL; Progesterone Level 14.28 ng/mL (See Comment)
[2021-09-24 14:23] LABS: hCG Titer Quant., Serum 2580 mIU/mL (1-3)
== END 2021-09-24 23:59 | disposition home or self-care (01) ==
LOC: WOBLAB 12:04
PROVIDERS: Visit Provider Obstetrics & Gynecology
DX: O20.0 Threatened abortion (principal)
CPT/HCPCS: 36415; 82670; 84144; 84702

== ENCOUNTER 2021-10-06 15:22 | Outpatient (CLI) | payer MEDICAID, SELFPAY ==
[2021-10-06 15:45] LABS: Absolute Neutrophil Count 4.7 X10^3/uL (2.0-7.7); Basophil# 0.04 X10^3/uL; Basophil% 0.6 % (0-1); Eosinophil# 0.06 X10^3/uL; Eosinophils% 0.9 % (0-5); Hemoglobin 13.9 g/dL (12.0-15.0); Lymphocyte % 23.6 % (19-41); Mean Corp Hgb Conc 34.8 g/dL (32-36); Mean Corpuscular Hgb 29.7 pg (27.0-32.0); Mean Corpuscular Volume 85.5 fL (81-99); Mean Platelet Vol. 9.7 fl (6.2-12.0); Monocyte# 0.34 X10^3/uL; NRBC Flagged by Analyzer 0 % (0-5); Neutrophil # 4.72 X10^3/uL (2.7-7.7); Neutrophil % 69.8 % (47-70); Platelet Count 210 K/mm3 (150-450); RBC Distribution Width CV 12.8 % (11.6-14.6); RBC Distribution Width SD 39.6 fl (35.1-43.9); Red Blood Count 4.68 M/mm3 (4.2-5.4); White Blood Count 6.8 K/mm3 (4.4-11.0)
[2021-10-06 16:21] LABS: Amphetamine Urine VISTA NEGATIVE (<1000 ng/mL); Barbiturate Urine VISTA NEGATIVE (< 200 ng/mL); Benzodiazepine Urine VISTA NEGATIVE (< 200 ng/mL); Cocaine Urine VISTA NEGATIVE (< 300 ng/mL); Ecstacy Urine VISTA NEGATIVE (< 500 ng/mL); Methadone Urine VISTA NEGATIVE (< 300 ng/mL); PCP Urine VISTA NEGATIVE (< 25 ng/mL); THC Urine VISTA NEGATIVE (< 50 ng/mL); Vista UDS pH Range 6
[2021-10-06 16:27] LABS: Color, Urine Yellow (Yellow); Glucose, Dipstick Normal (Normal); Ketone-Dipstick 5 mg/dl (Negative); Leukocyte Esterase-Dipstick 25 /ul (Negative); Nitrite-Dipstick Negative (Negative); Occult Blood-Urine Negative /ul (Negative); Protein-Dipstick Negative (Negative); Specific Gravity, Urine 1.025 (1.002-1.030); Urine Bilirubin Dipstick Negative (Negative); Urine Clarity Sl. Cloudy (Clear); Urine Urobilinogen Normal (Normal)
[2021-10-06 19:11] LABS: Thyroid Stim Hormone (TSH) 1.19 uIU/mL (0.358-3.74)
[2021-10-07 08:49] LABS: HIV - WCH Non-Reactive (Nonreactive); Hepatitis B Surface Antigen Non-Reactive (Nonreactive); Hepatitis C Antibody Non-Reactive (Nonreactive); Progesterone Level 18.95 ng/mL (See Comment); Rubella IgG Reactive (Nonreactive); Syphilis Antibodies Non-reactive; Vitamin D,25 Hydroxy 23.1 ng/mL
[2021-10-08 21:07] LABS: Chlamydia By Nucleic Acid AMP Negative (Negative)
[2021-10-08 21:16] LABS: Gonococcus By Nucleic Acid AMP Negative (Negative)
== END 2021-10-06 23:59 | disposition home or self-care (01) ==
PROVIDERS: Visit Provider Obstetrics & Gynecology
DX: Z34.81 Encounter for supervision of other normal pregnancy, first trimester (principal); E28.2 Polycystic ovarian syndrome
CPT/HCPCS: 36415; 80307; 81002; 82306; 82670; 84144; 84443; 85025; 86703; 86762; 86780; 86803; 87086; 87088; 87340; 87491; 87591

== ENCOUNTER 2021-10-20 14:03 | Outpatient (CLI) | payer MEDICAID, SELFPAY ==
[2021-10-20 17:16] LABS: Progesterone Level 110.62 ng/mL (See Comment)
== END 2021-10-20 23:59 | disposition home or self-care (01) ==
PROVIDERS: Visit Provider Obstetrics & Gynecology
DX: Z34.03 Encounter for supervision of normal first pregnancy, third trimester (principal); E28.2 Polycystic ovarian syndrome
CPT/HCPCS: 36415; 82670; 84144

== ENCOUNTER → 2022-03-04 | Outpatient (CLI) | payer MEDICAID, SELFPAY ==
[2022-03-04 11:27] LABS: Hemoglobin 11.8 g/dL (12.0-15.0); Mean Corp Hgb Conc 34.7 g/dL (32-36); Mean Corpuscular Hgb 31.1 pg (27.0-32.0); Mean Corpuscular Volume 89.5 fL (81-99); Mean Platelet Vol. 9.2 fl (6.2-12.0); Platelet Count 168 K/mm3 (150-450); RBC Distribution Width CV 13.7 % (11.6-14.6); RBC Distribution Width SD 44.7 fl (35.1-43.9); White Blood Count 6.9 K/mm3 (4.4-11.0)
[2022-03-04 11:32] LABS: Glucose Challenge Gest 1H 50g 86 mg/dL (70-140)
== END | disposition home or self-care (01) ==
LOC: WOBLAB 08:34
PROVIDERS: Visit Provider Student in an Organized Health Care Education/Training Program
DX: Z34.83 Encounter for supervision of other normal pregnancy, third trimester (principal)
CPT/HCPCS: 36415; 82950; 85027

== ENCOUNTER → 2022-04-28 | Outpatient (CLI) | payer MEDICAID, SELFPAY ==
[2022-04-28 12:18] LABS: Absolute Lymphocyte Count 1.44 X10^3/uL (0.83-4.51); Absolute Neutrophil Count 5.3 X10^3/uL (2.0-7.7); Basophil# 0.04 X10^3/uL; Basophil% 0.5 % (0-1); Eosinophil# 0.09 X10^3/uL; Eosinophils% 1.2 % (0-5); Hematocrit 36.4 % (37-47); Hemoglobin 12.3 g/dL (12.0-15.0); Lymphocyte # 1.44 X10^3/ul (0.83-4.51); Lymphocyte % 19.7 % (19-41); Mean Corp Hgb Conc 33.8 g/dL (32-36); Mean Corpuscular Hgb 30.1 pg (27.0-32.0); Mean Platelet Vol. 9.5 fl (6.2-12.0); Monocyte% 5.5 % (0-10); NRBC Flagged by Analyzer 0 % (0-5); Neutrophil # 5.26 X10^3/uL (2.7-7.7); Neutrophil % 71.9 % (47-70); Platelet Count 168 K/mm3 (150-450); RBC Distribution Width CV 14.5 % (11.6-14.6); RBC Distribution Width SD 46.5 fl (35.1-43.9); Red Blood Count 4.09 M/mm3 (4.2-5.4); White Blood Count 7.3 K/mm3 (4.4-11.0)
[2022-04-28 12:36] LABS: Protein, Urine (Random) 20.3 mg/dL (<11.9); Protein:Creat Ratio 172 mg/g CRE (0-200)
[2022-04-28 12:53] LABS: ALB/GLOB Ratio 0.7 RATIO (0.9-2.4); AST(SGOT) 16 U/L (15-37); Alanine Aminotransfer ALT/SGPT 14 U/L (13-56); Albumin, Serum 2.8 g/dL (3.2-5.0); Alkaline Phosphatase 196 U/L (45-117); Anion Gap 8 (5-15); BUN 5 mg/dL (7-18); BUN/Creat Ratio 7.3 RATIO (10-20); Calcium,Total 8.6 mg/dL (8.5-10.1); Chloride 108 mmol/L (98-107); Creatinine, Serum 0.69 mg/dL (0.55-1.02); EST Glomerular Filtration Rate 112 mL/min (>60); Est Glom Filt Rate - Afr Amer 136 mL/min (>60); Globulin 3.9 g/dL (2.2-4.2); Glucose 83 mg/dL (74-106); LDH 200 U/L (84-246); Potassium 3.7 mmol/L (3.5-5.1); Protein, Total 6.7 g/dL (6.4-8.2); Sodium Level 139 mmol/L (136-145)
== END | disposition home or self-care (01) ==
PROVIDERS: Visit Provider Student in an Organized Health Care Education/Training Program
DX: Z36.85 Encounter for antenatal screening for Streptococcus B (principal); L29.8 Other pruritus; G44.209 Tension-type headache, unspecified, not intractable; O99.350 Diseases of the nervous system complicating pregnancy, unspecified trimester; O99.719 Diseases of the skin and subcutaneous tissue complicating pregnancy, unspecified trimester
CPT/HCPCS: 36415; 80053; 82570; 83615; 84156; 85025; 87081; 87086; 87088

== ENCOUNTER 2022-05-05 17:15 | Inpatient (IN) | payer MEDICAID, SELFPAY ==
[2022-05-05] VITALS (20 sets, daily range): BP systolic 93–122; BP diastolic 63–80; PULSE 66–125; TEMP 36.6–37.4; O2SAT 88–100; BMI 32.1
--- NOTE | 2022-05-05 18:07 | PCM.HP.BLA ---
History and Physical Date of Admission: 05/05/22 Chief complaint: Cholestasis History present illness: 21-year-old G4, P2 at 37 weeks and 0 days with MADDY 05/26/2022 arrives for induction of labor for cholestasis. Denies headache, visual changes, chest pain, shortness of breath, nausea vomit, right upper quadrant pain. Patient states good movement. is complicated by cholestasis Obstetric history: G1: 37-week female 6 pounds 13 ounces G2: SAB G3: 39-week female 7 pounds 13 ounces G4: Current Past medical history: Cholestasis Medications: Ursodiol Past surgical history: Dilation curettage Allergies: Penicillin Family history: Denies history DVT or PE Social history: Denies smoking, alk phos, drug use Review of systems: Besides above pertinent positives a full review of systems was performed and found to be negative Physical exam: Vitals: Pending General: Normal-appearing no acute distress HEENT: Normocephalic atraumatic no cervical of adenopathy Cardiac/respiratory: No successor muscles, nonlabored breathing Abdomen: Soft, nontender, gravid Extremities: No peripheral edema normal peripheral pulses Psych: Normal affect normal demeanor nonpressured speech Labs: Pending Assessment plan: 21-year-old G4, P2 at 37 weeks and 0 days induction of labor for cholestasis Admit labor and delivery CEFM GBS negative Pitocin induction Anesthesia to see
[2022-05-05] MEDS: Lactated Ringers 1,000 ML 50 ML IV (18:40)
[2022-05-05 18:54] LABS: Absolute Lymphocyte Count 2.06 X10^3/uL (0.83-4.51); Absolute Neutrophil Count 7.9 X10^3/uL (2.0-7.7); Basophil# 0.03 X10^3/uL; Basophil% 0.3 % (0-1); Eosinophil# 0.04 X10^3/uL; Eosinophils% 0.4 % (0-5); Hematocrit 36.4 % (37-47); Hemoglobin 12.2 g/dL (12.0-15.0); Lymphocyte # 2.06 X10^3/ul (0.83-4.51); Lymphocyte % 19.5 % (19-41); Mean Corp Hgb Conc 33.5 g/dL (32-36); Mean Corpuscular Hgb 29.1 pg (27.0-32.0); Mean Corpuscular Volume 86.9 fL (81-99); Mean Platelet Vol. 9.8 fl (6.2-12.0); Monocyte# 0.49 X10^3/uL; Monocyte% 4.6 % (0-10); NRBC Flagged by Analyzer 0 % (0-5); Neutrophil # 7.87 X10^3/uL (2.7-7.7); Neutrophil % 74.7 % (47-70); Platelet Count 182 K/mm3 (150-450); RBC Distribution Width CV 14.4 % (11.6-14.6); RBC Distribution Width SD 44.1 fl (35.1-43.9); Red Blood Count 4.19 M/mm3 (4.2-5.4); White Blood Count 10.5 K/mm3 (4.4-11.0)
--- NOTE | 2022-05-05 19:47 | NURSING ---
pt requesting flu vaccine to be given after delivery
[2022-05-05] MEDS: LACTATED RINGERS 500 ML 999 ML IV ×2 (20:12→22:33)
[2022-05-05] MEDS: Acetaminophen 500 MG Tablet PO (20:20)
[2022-05-05] MEDS: Oxytocin 30 units/NS 500 ml 30 UNITS/500 ML IV.SOLN IV (20:45)
[2022-05-05] MEDS: Ondansetron 4 MG/2 ML Vial IV (22:37)
[2022-05-06] VITALS (50 sets, daily range): BP systolic 99–135; BP diastolic 56–94; PULSE 61–127; TEMP 36.4–37.6; O2SAT 98–100
[2022-05-06] MEDS: fentaNYL-bupivacaine (epidural) 100 ML BAG EPIDURAL ×4 (00:04→15:12)
[2022-05-06] MEDS: Lactated Ringers 1,000 ML 200 ML IV ×3 (03:19→13:50)
[2022-05-06] MEDS: Ondansetron 4 MG/2 ML Vial IV ×3 (05:20→22:29)
[2022-05-06] MEDS: Acetaminophen 500 MG Tablet PO (05:55)
--- NOTE | 2022-05-06 08:21 | PCM.PN.OB ---
Subjective Subjective No overnight complaints, comfortable with epidural Objective Data Objective Data Vital Signs: Vital Signs Temp Pulse BP Pulse Ox 98.4 F 101 H 121/77 H 99 05/06/22 07:16 05/06/22 07:16 05/06/22 07:15 05/06/22 07:16 Weight: 205 lb Body Mass Index (BMI) 32.1 Intake & Output: Intake and Output for Last 24 Hours 05/04/22 05/05/22 05/06/22 23:59 23:59 23:59 Intake Total 1183.26 / 1183.26 909.62 / 909.62 Output Total 200 / 200 700 / 700 Balance 983.26 / 983.26 209.62 / 209.62 Lab / Micro Data Result Diagrams: 05/05/22 18:40 Labs: Laboratory Results - last 24 hr 05/05/22 18:40: WBC 10.5, RBC 4.19 L, Hgb 12.2, Hct 36.4 L, MCV 86.9, MCH 29.1, MCHC 33.5, RDW Std Deviation 44.1 H, RDW Coeff of Stu 14.4, Plt Count 182, MPV 9.8, Immature Gran % (Auto) 0.500, Neut % (Auto) 74.7 H, Lymph % (Auto) 19.5, [place] % (Auto) 4.6, Eos % (Auto) 0.4, Baso % (Auto) 0.3, Absolute Neuts (auto) 7.9 H, Absolute Lymphs (auto) 2.06, Nucleated RBC % 0 05/05/22 18:40: Blood Type O POSITIVE, Antibody Screen NEGATIVE Physical Exam Const alert, oriented x3, no apparent distress, average body habitus, healthy appearing and well nourished HEENT normocephalic and moist oral mucous membranes Eyes PERRL Neck full ROM Resp normal respiratory effort, no retractions and no use of accessory muscles GI GI Narrative: Soft, nontender, gravid Narrative: CE: 360/-3. AROM thin meconium Extremity normal to inspection, full ROM and no clubbing, cyanosis or edema Neuro moves all extremities and no focal motor deficits Psych mental status grossly normal, affect normal, speech normal and activity/motor behavior normal Assessment & Plan (1) : PLAN: Pt seen and examined, comfortable with epidural. AROM, thin meconium. Director Of Dementia Operations for delivery. Educated pt on meconium. Continue current management
[2022-05-06] MEDS: LACTATED RINGERS 500 ML 999 ML IV (15:04)
--- NOTE | 2022-05-06 18:20 | PCM.PN.OB ---
Subjective Subjective Comfortable with epidural Objective Data Objective Data Vital Signs: Vital Signs Temp Pulse BP Pulse Ox 97.7 F L 80 120/72 100 05/06/22 18:02 05/06/22 18:02 05/06/22 18:02 05/06/22 18:02 Weight: 205 lb Body Mass Index (BMI) 32.1 Intake & Output: Intake and Output for Last 24 Hours 05/04/22 05/05/22 05/06/22 23:59 23:59 23:59 Intake Total 1183.26 / 1183.26 3543.12 / 3543.12 Output Total 200 / 200 2049 / 2049 Balance 983.26 / 983.26 1493.12 / 1493.12 Lab / Micro Data Result Diagrams: 05/05/22 18:40 Labs: Laboratory Results - last 24 hr 05/05/22 18:40: WBC 10.5, RBC 4.19 L, Hgb 12.2, Hct 36.4 L, MCV 86.9, MCH 29.1, MCHC 33.5, RDW Std Deviation 44.1 H, RDW Coeff of Stu 14.4, Plt Count 182, MPV 9.8, Immature Gran % (Auto) 0.500, Neut % (Auto) 74.7 H, Lymph % (Auto) 19.5, [place] % (Auto) 4.6, Eos % (Auto) 0.4, Baso % (Auto) 0.3, Absolute Neuts (auto) 7.9 H, Absolute Lymphs (auto) 2.06, Nucleated RBC % 0 05/05/22 18:40: Blood Type O POSITIVE, Antibody Screen NEGATIVE Physical Exam Const alert, oriented x3, no apparent distress, average body habitus, healthy appearing and well nourished HEENT normocephalic and moist oral mucous membranes Eyes PERRL Neck full ROM Resp normal respiratory effort, no retractions and no use of accessory muscles GI GI Narrative: Soft, nontender, gravid Narrative: Cervical exam: 5-6/70/-2 Extremity normal to inspection, full ROM and no clubbing, cyanosis or edema Neuro moves all extremities and no focal motor deficits Psych mental status grossly normal, affect normal, speech normal and activity/motor behavior normal Assessment & Plan (1) : PLAN: Patient seen and examined. Continue to titrate Pitocin
[2022-05-06] MEDS: Oxytocin 30 units/NS 500 ml 30 UNITS/500 ML IV.SOLN 334 UNITS IV (20:21)
[2022-05-06] MEDS: Methylergonovine 0.2 MG/ML Ampul IM (20:24)
--- NOTE | 2022-05-06 20:31 | EX.PCM.OBRPT ---
Vaginal Delivery Findings Description of Procedure: Normal spontaneous vaginal delivery of a viable male , vertex FRANK. Head and shoulders delivered with ease. Cord cut and clamped. Baby handed off to patient. Placenta delivered via cord traction and fundal massage. Prophylactic IM Methergine given for short second stage of labor. No lacerations noted. EBL 400 cc Apgars 9/9
[2022-05-06] MEDS: Acetaminophen 500 MG Tablet 1000 MG PO (22:28)
[2022-05-06] MEDS: Ibuprofen 600 MG Tablet PO (22:52)
[2022-05-07] VITALS (17 sets, daily range): BP systolic 104–131; BP diastolic 70–86; PULSE 55–82; RESP 16; TEMP 36.3–37.2; O2SAT 97–99
--- NOTE | 2022-05-07 04:21 | NURSING ---
report received from lenard WHEATLEY. this RN to assume care of couplet at this time.
[2022-05-07] MEDS: FLU VACC QS2022-23(6MOS UP)/PF 60 MCG/0.5 ML SYRINGE IM (04:40)
[2022-05-07] MEDS: Ibuprofen 600 MG Tablet PO ×2 (04:42→19:52)
--- NOTE | 2022-05-07 06:02 | PCM.PN.OB ---
Subjective Subjective No overnight complaints Objective Data Objective Data Vital Signs: Vital Signs Temp Pulse Resp BP Pulse Ox O2 Del Method 97.4 F L 72 16 121/73 H 100 Room Air 05/07/22 04:38 05/07/22 04:38 05/07/22 04:38 05/07/22 04:38 05/06/22 18:53 05/07/22 04:38 Oxygen Delivery Method Room Air Weight: 205 lb Body Mass Index (BMI) 32.1 Intake & Output: Intake and Output for Last 24 Hours 05/05/22 05/06/22 05/07/22 23:59 23:59 23:59 Intake Total 1183.26 / 1183.26 5080.96 / 5080.96 Output Total 200 / 200 2800 / 2800 800 / 800 Balance 983.26 / 983.26 2280.96 / 2280.96 -800 / -800 Lab / Micro Data Result Diagrams: 05/05/22 18:40 Physical Exam Const alert, oriented x3, no apparent distress, average body habitus, healthy appearing and well nourished HEENT normocephalic and moist oral mucous membranes Eyes PERRL Neck full ROM Resp normal respiratory effort, no retractions and no use of accessory muscles GI GI Narrative: Soft, nontender, gravid Extremity normal to inspection, full ROM and no clubbing, cyanosis or edema Neuro moves all extremities and no focal motor deficits Psych mental status grossly normal, affect normal, speech normal and activity/motor behavior normal Assessment & Plan (1) Normal spontaneous vaginal delivery: PLAN: day 1. Breast-feeding. Pain well controlled. Likely home tomorrow
[2022-05-07] MEDS: Acetaminophen 500 MG Tablet 1000 MG PO (13:23)
[2022-05-07] MEDS: Senna/Docusate Sodium 1 Tablet PO (19:52)
[2022-05-08 01:52] VITALS: BP 112/66; PULSE 67; TEMP 36.7
[2022-05-08] MEDS: Acetaminophen 500 MG Tablet 1000 MG PO (01:55)
[2022-05-08 02:05] VITALS: BP 112/66; PULSE 67; RESP 16; TEMP 36.7
[2022-05-08 08:20] VITALS: BP 126/80; PULSE 77; RESP 18; TEMP 37; O2SAT 98
[2022-05-08 08:22] VITALS: BP 126/80; PULSE 74; TEMP 37
[2022-05-08] MEDS: Ibuprofen 600 MG Tablet PO (08:25)
--- NOTE | 2022-05-08 10:55 | DS.PCM_ITS ---
Discharge Summary Date of Admission: 05/05/22 Date of Discharge: 05/08/22 Summary: Patient arrived on 05/05/2022 for induction of labor with cholestasis. Subsequently delivered vaginally on 05/06/2022. Routine recovery. Discharge home on 05/08/2022 Meaningful Use Info Meaningful Use Diagnoses (Choose all that apply): None applicable Discharge Plan Admission Admit Date/Time: 05/05/22 17:15 Primary Reason for Your Visit: Induction of labor cholestasis Attending Provider: Brad Lomas Primary Care Provider: Care Physician,Viviana Primary Instructions Additional Instructions / Restrictions: Regular diet. Weightbearing as tolerated. Okay to shower. No intercourse for 4 to 6 weeks. Call if fevers, chills, chest pain, shortness of breath. Follow- up 4 to 6 weeks Discharge Orders/Prescriptions Prescriptions: No Action Prenatabs FA 1 TABLET tablet 1 tab PO DAILY Referrals / Follow Up: Care Physician,No Primary [Primary Care Provider] - Disposition Disposition (needs filled in before D/C Order can be placed): Home, Self Care
--- NOTE | 2022-05-08 10:56 | PCM.PN.OB ---
Subjective Subjective No overnight complaints Objective Data Objective Data Vital Signs: Vital Signs Temp Pulse Resp BP Pulse Ox O2 Del Method 98.6 F 74 18 126/80 H 98 Room Air 05/08/22 08:22 05/08/22 08:22 05/08/22 08:20 05/08/22 08:22 05/08/22 08:20 05/08/22 08:20 Oxygen Delivery Method Room Air Weight: 205 lb Body Mass Index (BMI) 32.1 Intake & Output: Intake and Output for Last 24 Hours 05/06/22 05/07/22 05/08/22 23:59 23:59 23:59 Intake Total 5080.96 / 5080.96 Output Total 2800 / 2800 1250 / 1250 Balance 2280.96 / 2280.96 -1250 / -1250 Lab / Micro Data Result Diagrams: 05/05/22 18:40 Physical Exam Const alert, oriented x3, no apparent distress, average body habitus, healthy appearing and well nourished HEENT normocephalic and moist oral mucous membranes Eyes PERRL Neck full ROM Resp normal respiratory effort, no retractions and no use of accessory muscles GI GI Narrative: Soft, nontender, uterus firm and below umbilicus Extremity normal to inspection, full ROM and no clubbing, cyanosis or edema Neuro moves all extremities and no focal motor deficits Psych mental status grossly normal, affect normal, speech normal and activity/motor behavior normal Assessment & Plan (1) Normal spontaneous vaginal delivery: PLAN: day 2. Breast-feeding. Pain well controlled. Okay to discharge home today
== END 2022-05-08 11:25 | disposition home or self-care (01) | DRG 560 ==
PROVIDERS: Student in an Organized Health Care Education/Training Program; Admitting Provider Obstetrics & Gynecology; Visit Provider Obstetrics & Gynecology
DX: O26.62 Liver and biliary tract disorders in childbirth (principal); Z37.0 Single live birth; K83.1 Obstruction of bile duct; O77.0 Labor and delivery complicated by meconium in amniotic fluid; Z3A.37 37 weeks gestation of pregnancy
CPT/HCPCS: 59025; 59050; 85025; 86850; 86900; 86901; 99218; J7120; 90686; G0378; J2405

== ENCOUNTER 2023-11-01 16:10 | Outpatient (CLI) | payer MEDICAID, SELFPAY ==
[2023-11-01 16:26] VITALS: BP 113/68; PULSE 93; RESP 16; TEMP 36.4
[2023-11-01 16:29] VITALS: PULSE 96; O2SAT 99
[2023-11-01 16:35] VITALS: BMI 40.0
[2023-11-01 17:23] LABS: Color, Urine Yellow (Yellow); Glucose, Dipstick Normal (Normal); Ketone-Dipstick 50 mg/dl (Negative); Leukocyte Esterase-Dipstick 100 /ul (Negative); Nitrite-Dipstick Negative (Negative); Occult Blood-Urine 150 /ul (Negative); Protein-Dipstick Negative (Negative); Urine Bilirubin Dipstick Negative (Negative); Urine Clarity Sl. Cloudy (Clear); Urine Urobilinogen Normal (Normal)
[2023-11-01 17:24] LABS: Mucous, Urine 0 SEEN /hpf (<or=2+)
[2023-11-01 17:30] LABS: Bacteria 1+ /hpf (None Seen); Squamous Epithelial Cells - UA 10-25 SEEN /hpf (5-10)
[2023-11-01 17:31] LABS: Red Blood Cells-Urine 0-5 SEEN /hpf (0-5); White Blood Cells 5-10 SEEN /hpf (0-5)
--- NOTE | 2023-11-14 08:45 | OB.TRI.NOTE ---
HPI - General HPI Narrative ENOC HENDRIX, is a 23 F who presents at 28w1d for bleeding. MADDY: 01/22/23. PFSH PFSH Medical History (Updated 11/14/23 @ 08:47 by Gwendolyn Johnson CNM) Gestational HTN Headache Hemorrhoids Infertility Syncope Thyroid disorder Home Medications vits,calcium no.78-iron fumarate-folic acid 29 mg-1 mg tablet (Prenatabs FA) 1 tab PO DAILY Check with primary doctor 07/06/16 [History Last Taken 10/31/23 20:00 1 TAB] aspirin 81 mg tablet,delayed release ([place] Aspirin) 81 mg PO DAILY 11/01/23 [History Last Taken 10/31/23 20:00 81 mg] ferrous sulfate 325 mg (65 mg iron) tablet (Feosol) 325 mg PO QODAY 11/01/23 [History Last Taken 10/30/23 20:00 325 mg] Allergy/AdvReac Type Severity Reaction Status Date / Time penicillin G Allergy Hives Verified 11/01/23 16:33 Surgical History H/O dilation and curettage Social History Smoking Status: Never smoker History Elective abortions Hx Para 2 Spontaneous abortions Hx # Term Pregnancies Ectopic pregnancies Hx # Pregnancies Multiple births # of living children NST FHR Rate Baby A Baseline: 130 Variability:: Moderate Accelerations:: 15 x 15 Decelerations:: None NST Reactive:: Yes FHR Rate Baby B Baseline: 135 Variability:: Moderate Accelerations:: 15 x 15 Decelerations:: None NST Reactive:: Yes Assessment & Plan (1) Dichorionic diamniotic twin : (2) 28 weeks gestation of : (3) Vaginal bleeding: PLAN: Plan 1) No blood present upon triage and nothing further 2) Pelvic rest 3) D/C home and follow up outpatient
== END 2023-11-01 18:49 | disposition home or self-care (01) ==
LOC: WPOUT 16:16 → WP 16:16
PROVIDERS: Referring Provider Advanced Practice Midwife; Visit Provider Advanced Practice Midwife
DX: O30.043 Twin pregnancy, dichorionic/diamniotic, third trimester (principal); Z3A.28 28 weeks gestation of pregnancy; O46.93 Antepartum hemorrhage, unspecified, third trimester
CPT/HCPCS: 59025; 59050; 81001; 87086; 87088; 99221; G0378